=== PATIENT | male | born 1940 | race Caucasian/White ===

== ENCOUNTER 2025-05-15 11:19 | Outpatient (CLI) | payer MEDICARE, MEDICAID ==
[2025-05-15 11:49] LABS: Anisocytosis SLIGHT = 6-15 cells (100X) (0-5/hpf); Hematocrit 36.7 % (42.0-52.0); Hemoglobin 10.9 g/dL (14.0-18.0); MDiff Complete? YES; Macrocytosis SLIGHT = 6-15 cells (100X) (0-5/hpf); Mean Corpuscular Hemoglobin 25.6 pg (27.0-31.0); Mean Corpuscular Volume 86.4 fl (78.0-98.0); Platelet Adequacy Comment Appears Adequate; Platelet Count 395 10x3/uL (130-400); Red Blood Cell (RBC) Count 4.25 mill/uL (4.70-6.10); White Blood Cell (WBC) Count 16.1 10x3/uL (4.8-10.8)
[2025-05-15 12:03] LABS: Anion Gap 16 mmol/L (10-20); BUN (Urea Nitrogen) 58 mg/dL (8.4-25.7); Calc. Creatinine Clearance 0 mL/min (70-130); Calcium 8.9 mg/dL (7.8-10.44); Carbon Dioxide 25 mmol/L (23-31); Chloride 121 mmol/L (98-107); Glucose 311 mg/dL (83-110); Potassium 4.0 mmol/L (3.5-5.1)
[2025-05-15 12:55] LABS: Sodium 158 mmol/L (136-145)
== END 2025-05-15 11:20 | disposition home or self-care (01) ==
LOC: MADLAB 11:19
PROVIDERS: ATTEND Nurse Practitioner Primary Care
DX: I62.03 Nontraumatic chronic subdural hemorrhage (principal)
CPT/HCPCS: 80048; 85025

== ENCOUNTER 2025-05-23 10:40 | Emergency (ER) | payer MEDICARE, OTHER | END 2025-05-23 11:55 | LOC: MADERS 10:40 | DX: Z00.00 Encounter for general adult medical examination without abnormal findings (principal) | CPT/HCPCS: 99284 ==